=== PATIENT | male | born 1995 | race Caucasian/White ===

== ENCOUNTER 2024-02-11 06:24 | Day surgery (SDC) | payer BC ==
[2024-02-05 16:23] VITALS: BMI 23.1
[2024-02-11] MEDS ORDERED: PROPOFOL 20 ML ONE ×2 (06:53→09:30)
[2024-02-11] MEDS ORDERED: MIDAZOLAM HCL 2 MG/2 ML SINGLE DOSE VIAL ONE (06:54)
[2024-02-11] MEDS ORDERED: BUPIVACAINE HCL/PF 0.5% (5 MG/ML) 30 ML VIAL IJ ONE (07:01)
[2024-02-11] MEDS ORDERED: ACETAMINOPHEN INJECTION 100 ML ONE (07:02)
[2024-02-11] MEDS ORDERED: DEXAMETHASONE SOD PHOSPHATE 10 MG/1 ML VIAL ONE (07:02)
[2024-02-11] MEDS ORDERED: ONDANSETRON 4 MG/2 ML VIAL IVPUSH PRN (07:14)
[2024-02-11] MEDS ORDERED: oxyCODONE HCL 5 MG TABLET PO PRN ×2 (07:14)
[2024-02-11] MEDS ORDERED: LACTATED RINGERS SOLUTION 1,000 ML IV SCH (07:15)
[2024-02-11] MEDS ORDERED: VANCOMYCIN 1,000 MG VIAL (RESTRICTED TO ID ONLY) ONE (07:19)
[2024-02-11] MEDS ORDERED: BUPIVACAINE HCL/EPINEPHRINE/PF 30 ML VIAL IJ ONE (07:20)
[2024-02-11] MEDS ORDERED: ONDANSETRON 4 MG/2 ML VIAL ONE (08:00)
[2024-02-11] MEDS ORDERED: ceFAZolin SODIUM 1 GM VIAL ONE (08:00)
[2024-02-11] MEDS ORDERED: DEXAMETHASONE SOD PHOSPHATE 4 MG/1 ML VIAL ONE (08:00)
[2024-02-11] MEDS ORDERED: TRANEXAMIC ACID 1000 MG/10 ML VIAL ONE ×2 (08:03→09:52)
[2024-02-11] MEDS ORDERED: KETOROLAC TROMETHAMINE 30 MG/1 ML VIAL ONE (10:31)
[2024-02-11] MEDS: BUPIVACAINE HCL/EPINEPHRINE/PF 30 ML VIAL IJ ONE (10:33)
[2024-02-11 11:46] VITALS: PULSE 52; RESP 16; TEMP 97.2
[2024-02-11] MEDS: oxyCODONE HCL 5 MG TABLET ONE (11:58)
[2024-02-11 12:15] VITALS: BP 118/71
== END 2024-02-11 12:50 | disposition home or self-care (01) ==
LOC: FASU 06:24
PROVIDERS: ATTEND Orthopaedic Surgery
PROC: 0SBC4ZZ Excision of Right Knee Joint, Percutaneous Endoscopic Approach (ICD-10-PCS; 2024-02-11)
PROC: 0MRN47Z Replacement of Right Knee Bursa and Ligament with Autologous Tissue Substitute, Percutaneous Endoscopic Approach (ICD-10-PCS; principal; 2024-02-11 08:20)
DX: S83.511A Sprain of anterior cruciate ligament of right knee, initial encounter (principal); S83.281A Other tear of lateral meniscus, current injury, right knee, initial encounter; S82.111A Displaced fracture of right tibial spine, initial encounter for closed fracture; X58.XXXA Exposure to other specified factors, initial encounter; Y93.9 Activity, unspecified; Y92.9 Unspecified place or not applicable
CPT/HCPCS: 29850; 29881; 29888; C1713; 94760; J0131; J1100